=== PATIENT | male | born 1990 | race Caucasian/White ===

== ENCOUNTER 2021-02-23 20:26 | Emergency (ER) | payer OTHER ==
[~2021-02-23] VITALS: Ht 165.1 cm; Wt 54.5 kg
[2021-02-23 20:35] VITALS: BP 121/86; TEMP 97.7
[2021-02-23 21:53] VITALS: PULSE 77
== END 2021-02-23 22:06 | disposition home or self-care (01) ==
LOC: COL.ER 20:26
DX: S40.012A Contusion of left shoulder, initial encounter (principal); D68.0 Von Willebrand disease; Z98.890 Other specified postprocedural states; W20.8XXA Other cause of strike by thrown, projected or falling object, initial encounter; Y93.G1 Activity, food preparation and clean up; Y92.838 Other recreation area as the place of occurrence of the external cause; Y99.0 Civilian activity done for income or pay

== ENCOUNTER 2021-05-30 22:34 | Emergency (ER) | payer MEDICARE ==
[~2021-05-30] VITALS: Ht 165.1 cm; Wt 57.7 kg
[2021-05-30 22:44] VITALS: TEMP 97.2
[2021-05-31 01:27] VITALS: BP 154/99; PULSE 78
== END 2021-05-31 01:27 | disposition home or self-care (01) ==
LOC: COL.ER 22:34
DX: H72.91 Unspecified perforation of tympanic membrane, right ear (principal)

== ENCOUNTER 2021-09-08 17:27 | Emergency (ER) | payer OTHER, MEDICARE ==
[~2021-09-08] VITALS: Ht 165.1 cm; Wt 55.5 kg
[2021-09-08 18:23] VITALS: BP 121/80; PULSE 81; TEMP 97.8
== END 2021-09-08 20:00 | disposition home or self-care (01) ==
LOC: COL.ER 17:27
DX: S09.90XA Unspecified injury of head, initial encounter (principal); W20.8XXA Other cause of strike by thrown, projected or falling object, initial encounter; Y92.59 Other trade areas as the place of occurrence of the external cause; Y99.0 Civilian activity done for income or pay